=== PATIENT | male | born 1980 | race Caucasian/White ===

== ENCOUNTER 2020-09-20 09:25 | Outpatient (CLI) | payer OTHER, SELFPAY ==
[2020-09-20 16:45] LABS: Alanine Aminotransferase 35 U/L (4-50); Albumin Level 3.9 g/dL (3.5-5.1); Alkaline Phosphatase 110 U/L (38-126); Anion Gap 10 mmol/L (8-16); Aspartate Amino Transferase 28 U/L (17-59); Bilirubin,Total 0.4 mg/dL (0.2-1.3); Blood Urea Nitrogen 13 mg/dL (9-20); Calcium 8.9 mg/dL (8.4-10.2); Carbon Dioxide 25 mmol/L (22-30); Chloride 103 mmol/L (98-107); Cholesterol 151 mg/dL (0-200); Estimated Glomerular Filt Rate > 60; Glucose 153 mg/dL (75-110); HDL Direct 32 mg/dL; Potassium 4.6 mmol/L (3.4-5.0); Sodium 138 mmol/L (137-145); Triglycerides 131 mg/dL (<150)
[2020-09-20 16:55] LABS: LDL Cholesterol Direct 85 mg/dL
[2020-09-20 17:02] LABS: Free T4 Free Thyroxine 0.97 ng/mL (0.78-2.19)
[2020-09-20 17:05] LABS: Creatinine Urine 156.8 mg/dL
[2020-09-20 17:11] LABS: Microalbumin Urine Random 6.3 mg/L (0-16.7)
== END 2020-09-20 09:26 | disposition home or self-care (01) ==
LOC: ANHWCLAB 09:29
PROVIDERS: PCP Internal Medicine; Visit Provider Internal Medicine Endocrinology, Diabetes & Metabolism
DX: E03.9 Hypothyroidism, unspecified (principal); E78.49 Other hyperlipidemia; E11.65 Type 2 diabetes mellitus with hyperglycemia; E11.9 Type 2 diabetes mellitus without complications
CPT/HCPCS: 36415; 80053; 80061; 82043; 84439; 84443

== ENCOUNTER 2022-08-27 09:15 | Outpatient (RCR) | payer OTHER, SELFPAY ==
[2022-06-03 08:13] VITALS: BMI 49.0
[2022-06-03 09:02] VITALS: BMI 49.0
== END 2022-09-01 08:44 | disposition home or self-care (01) ==
LOC: ANHDMC 09:15
PROVIDERS: PCP Internal Medicine; Visit Provider Nurse Practitioner Family
DX: E11.65 Type 2 diabetes mellitus with hyperglycemia (principal); E66.01 Morbid (severe) obesity due to excess calories; Z71.3 Dietary counseling and surveillance; Z71.89 Other specified counseling
CPT/HCPCS: 97802; G0108

== ENCOUNTER 2023-01-13 09:15 | Outpatient (RCR) | payer OTHER, SELFPAY | END 2023-01-19 10:06 | disposition home or self-care (01) | LOC: ANHDMC 09:15 | PROVIDERS: PCP Internal Medicine; Visit Provider Nurse Practitioner Family | DX: E11.65 Type 2 diabetes mellitus with hyperglycemia (principal); E66.01 Morbid (severe) obesity due to excess calories; Z71.89 Other specified counseling | CPT/HCPCS: G0108 ==

== ENCOUNTER 2023-06-03 09:15 | Outpatient (RCR) | payer OTHER, SELFPAY | END 2023-07-02 13:52 | disposition home or self-care (01) | LOC: ANHDMC 09:15 | PROVIDERS: PCP Nurse Practitioner Family; Visit Provider Nurse Practitioner Family | DX: E11.65 Type 2 diabetes mellitus with hyperglycemia (principal); E66.01 Morbid (severe) obesity due to excess calories; Z71.89 Other specified counseling; Z79.4 Long term (current) use of insulin | CPT/HCPCS: G0108 ==

== ENCOUNTER 2023-09-29 09:15 | Outpatient (RCR) | payer OTHER, SELFPAY | END 2023-10-19 10:18 | disposition home or self-care (01) | LOC: ANHDMC 09:15 | PROVIDERS: PCP Nurse Practitioner Family; Visit Provider Nurse Practitioner Family | DX: E11.65 Type 2 diabetes mellitus with hyperglycemia (principal); E66.01 Morbid (severe) obesity due to excess calories; Z71.89 Other specified counseling | CPT/HCPCS: G0108 ==

== ENCOUNTER 2024-01-28 09:15 | Outpatient (RCR) | payer OTHER, SELFPAY | END 2024-02-08 11:08 | disposition home or self-care (01) | LOC: ANHDMC 09:15 | PROVIDERS: PCP Nurse Practitioner Family; Visit Provider Nurse Practitioner Family | DX: E11.65 Type 2 diabetes mellitus with hyperglycemia (principal); E66.01 Morbid (severe) obesity due to excess calories; Z79.4 Long term (current) use of insulin; Z71.89 Other specified counseling | CPT/HCPCS: G0108 ==

== ENCOUNTER 2024-02-25 08:21 | Outpatient (RCR) | payer OTHER, SELFPAY | END 2024-05-16 09:26 | disposition home or self-care (01) | LOC: ANHDMC 08:21 | PROVIDERS: PCP Nurse Practitioner Family; Visit Provider Nurse Practitioner Family | DX: E11.65 Type 2 diabetes mellitus with hyperglycemia (principal); E66.01 Morbid (severe) obesity due to excess calories; Z71.89 Other specified counseling | CPT/HCPCS: G0108 ==